=== PATIENT | female | born 1985 | race Asian ===

== ENCOUNTER 2025-08-25 15:16 | Outpatient (REF) | payer OTHER, SELFPAY | END 2025-08-25 15:17 | disposition home or self-care (01) | LOC: HO.CHCLDS 15:16 | PROVIDERS: PCP Internal Medicine; Visit Provider Internal Medicine | DX: Z13.89 Encounter for screening for other disorder (principal) ==

== ENCOUNTER 2025-09-22 13:19 | Outpatient (REF) | payer MEDICAID, SELFPAY ==
--- OUTSIDE RECORDS SUMMARY | 2025-09-18 15:40 | XMS_ITS | Encounter Summary ---
Author Organization [employer] Address [address] [facility] [address] [place] [address] Care Team Providers Care Dope House Operator Helper Name Role Phone Lillie Villegas MD Primary Care Provider [phone] Reason for Visit * Reason Comments latent syphilis Encounter Details Date Type Department Care Team (Late st Contact Info) Description 09/18/2025 3:40 PM EST Office Visit [facility] PEDS [address] [place], [place] [phone] Ana Newman MD [address] [place], [place] [phone] Latent syphilis (Primary Dx) Social History Tobacco Use Types Packs/Day Years Used Date Smoking Tobacco: Never Smokeless Tobacco: Never Housing Stability Answer Date Recorded What is your housing situation today? I have shruthimary ellen chamberlain 08/18/[address] you li ve. Do you have problems with any of the following? None of the above 08/18/2025 Food Insecurity Answer Date Recorded Within the past 12 months, y ou worried that your food would run out before you got money to buy more: Never True 08/18/2025 Within the past 12 months,th e food you bought just didn't last and you didn't have enough money to get more: Never True Transportation Answer Date Recorded In the past 12 months, has l ack of transportation kept you from medical appts, meetings, work or from getting things needed for daily living? No 08/18/2025 Utilities Answer Date Recorded In the past 12 months, has t he electric, gas, oil or water company threatened to shut off services in your home? No 08/18/2025 Internet Access Answer Date Recorded Internet Access Q1 Yes 08/18/2025 Internet Access Q2 Not on file 08/18/2025 Comments Unknown Sex and Gender Information Value Date Recorded Sex Assigned at Female 08/22/2025 1:21 PM EST Legal Sex Female 12:00 PM EDT Gender Identity Female 08/22/2025 1:21 PM EST Sexual Orientation Straight 08/22/2025 1: 21 PM EST documented as of this encounter Last Filed Vital Signs Vital Sign Reading Time Taken Comments Blood Pressure 128/84 09/18/2025 3:38 PM EST Pulse 80 09/18/2025 3:38 PM EST Temperature 36.8 C (98.3 F) 09/18/2025 3:38 PM EST Respiratory Rate 20 09/18/2025 3:38 PM EST Oxygen Saturation 98% 09/18/2025 3:38 PM EST Inhaled Oxygen Concentration - - Weight 83.3 kg (183 lb 9.6 oz) 09/18/2025 3:38 P M EST Height 167.6 cm (5' 6 ) 09/18/2025 3:38 PM EST Body Mass Index 29.63 09/18/2025 3:38 PM EST documented in this encounter Progress Notes * Ana Newman MD - 09/18/2025 3:40 PM EST Subjective Patient ID: Lakesha Gil is a 40 y.o. female who presents for latent syphilis. Lakesha Gil presents for follow-up regarding positive syphilis testing. The patient had RPR testing performed on the which was reactive at a 1:1 titer, with subsequent confirmatory testingalso being reactive. The patient reports no known medication allergies. Medications and Supplements - Amlodipine for blood pressure Allergies - No known drug allergies Review of Systems Constitutional: Negative for appetite change, fatigue and fever. HENT: Negative for congestion, postnasal drip and rhinorrhea. Eyes: Negative for discharge and redness. Respiratory: Negative for apnea, cough, chest tightness and shortness of breath. Cardiovascular: Negative for chest pain. Gastrointestinal: Negative for abdominal pain. Endocrine: Negative for polyphagia. Genitourinary: Negative for difficulty urinating, dysuria and urgency. Musculoskeletal: Negative for arthralgias. Neurological: Negative for dizziness, light-headedness, numbness and headaches. Hematological: Negative for adenopathy. Does not bruise/bleed easily. Objective Blood pressure 128/84, pulse 80, temperature 98.3 ??F (36.8 ??C), temperature source Oral, resp. rate 20, height 5' 6 (1.676 m), weight 183 lb 9.6 oz (83.3 kg), last menstrual period 08/13/2025, SpO2 98%. Physical Exam Constitutional: General: She is not in acute distress. Appearance: She is obese. She is not ill-appearing. HENT: Head: Normocephalic and atraumatic. Nose: No congestion. Pulmonary: Effort: Pulmonary effort is normal. No respiratory distress. Breath sounds: Normal breath sounds. Musculoskeletal: Cervical back: Normal range of motion. Neurological: General: No focal deficit present. Mental Status: She is alert. Psychiatric: Mood and Affect: Mood normal. Assessment/Plan Problem List Items Addressed This Visit None Visit Diagnoses Latent syphilis - Primary Relevant Medications Penicillin G Benzathine suspension prefilled syringe 2.4 patrick-units Other Relevant Orders RPR (Monitor) with Reflex to Titer Lakesha Gil with reactive RPR testing indicating latent syphilis requiring antibiotic treatment. Latent syphilis Assessment: Patient has reactive RPR testing performed on the with a titer of 1:1, confirmed by reactive confirmatory testing. This indicates latent syphilis of unknown duration. She has no known drug allergies. Plan: - Penicillin G benzathine 2.4 million units IM weekly for 3 doses (first dose administered today) - RPR with titer monitoring at 6 months (March 2026), 12 months (September 2026), and 24 months (September 2027) documented in this encounter Plan of Treatment Upcoming Encounters Date Type Department Care Team (Late st Contact Info) Description 09/25/2025 3:30 PM EST Nurse Only [facility] MED & PEDS [address] [place] [address] Scheduled Orders Name Type Priority Associated Diagnoses Orde r Schedule RPR (Monitor) with Reflex to Titer Lab Routine Latent syphilis Expected: 03/19/2026, Expires: 09/18/2026 documented as of this encounter Visit Diagnoses Diagnosis Latent syphilis- Primary Unspecified latent syphilis documented in this encounter Administered Medications Active Administered Medications - up to 3 most recent administrations Medication Order MAR Action Action Date Dose Rate Site Penicillin G Benzathine suspension prefilled syringe 2.4 patrick-units 2.4 patrick-units, Intramuscular, Weekly, First dose on Thu09/18/25 at 1600, For 3 dosesIndications:Late nt syphilis Given 09/18/2025 4:00 PM EST 2.4 patrick-units Left Upper Buttock documented in this encounter Care Teams Dope House Operator Helper Relationship Specialty Start Date End Date Lillie Villegas MD [address] [place] [id number] PCP - General Internal Medicine 08/29/25 documented as of this encounter
[2025-09-22 15:04] LABS: MANUAL DIFF FLAG NO
--- OUTSIDE RECORDS SUMMARY | 2025-09-22 15:08 | XMS_ITS | Encounter Summary ---
Author Organization [employer] Address [address] [facility] [address] [place] [address] Care Team Providers Care Apartment Community Assistant Manager Name Role Phone Lillie Villegas MD Primary Care Provider [phone] Encounter Details Date Type Department Care Team (Latest Contact Info) Description 09/18/2025 Travel Social History Tobacco Use Types Packs/Day Years Used Date Smoking Tobacco: Never Smokeless Tobacco: Never Housing Stability Answer Date Recorded What is your housing situation today? I have shruthi chamberlain 08/18/[address] you [...] PM EST documented as of this encounter Plan of Treatment Upcoming Encounters Date Type Department Care Team ([facility] st Contact Info) Description 09/25/2025 3:30 PM EST Nurse Only [facility] MED & PEDS [address] [place] [address] documented as of this encounter Visit Diagnoses Not on filedocumented in this encounter Care Teams Apartment Community Assistant Manager Relationship Specialty Start Date End Date Lillie Villegas MD [address] [place] [address] PCP - General Internal Medicine 08/29/25 documented as of this encounter
--- OUTSIDE RECORDS SUMMARY | 2025-09-22 15:08 | XMS_ITS | Encounter Summary ---
Author Organization [employer] Address [address] [facility] [address] [place] [address] Care Team Providers Care Software Sales Manager Name Role Phone Lillie Villegas MD Primary Care Provider [phone] Reason for Visit * Reason Onset Date Comments Care Coordination 09/19/2025 Encounter Details Date Type Department Care Team ([facility] st Contact Info) Description 09/19/2025 Telephone [facility] MED & PEDS [address] [place], [place] [phone] Lillie Villegas MD [address] [place], [place] [phone] Care Coordination Social History Tobacco Use Types Packs/Day Years [...] PM EST documented as of this encounter Miscellaneous Notes * Telephone Encounter - Kelly Weinstein RN - 09/19/2025 4:17 PM EST TC to pt spouse on HIPAA and scheduled #2 Bicillin injection for 09/25/25 pt can only come in afternoon. Appointment scheduled for 3:30 PM and advised of importance of therapy compliance and contact office if unable to make to appointment for rescheduling. Pt spouse verbalized understanding and agreement with plan. documented in this encounter Plan of Treatment Upcoming Encounters Date Type Department Care Team (Late st Contact Info) Description 09/25/2025 3:30 PM EST Nurse Only [facility] MED [facility] PEDS [address] [place] [address] documented as of this encounter Visit Diagnoses Not on filedocumented in this encounter Care Teams Software Sales Manager Relationship Specialty Start Date End Date Lillie Villegas MD [address] [place] [address] PCP - General Internal Medicine 08/29/25 documented as of this encounter
--- OUTSIDE RECORDS SUMMARY | 2025-09-22 15:08 | XMS_ITS | Encounter Summary ---
Author Organization [employer] Address [address] [facility] [address] [place] [address] Care Team Providers Care Lead Oxide Mill Tender Name Role Phone Lillie Villegas MD Primary Care Provider [phone] Encounter Details Date Type Department Care Team (Latest Contact Info) Description 08/28/2025 Orders Only [facility] MED [facility] PEDS [address] [place], [place] [phone] Lillie Villegas MD [address] [place], [place] [phone] Hypertriglyceridemia (Primary Dx); Normocytic anemia Social History Tobacco Use Types Packs/Day Years [...] Upcoming Encounters Date Type Department Care Team ([facility] st Contact Info) Description 09/25/2025 3:30 PM EST Nurse Only [facility] PEDS [address] [place] [address] documented as of this encounter Visit Diagnoses Diagnosis Hypertriglyceridemia- Primary Pure hyperglyceridemia Normocytic anemia Unspecified anemia documented in this encounter Care Teams Lead Oxide Mill Tender Relationship Specialty Start Date End Date Lillie Villegas MD [address] [place] [address] PCP - General Internal Medicine 08/29/25 documented as of this encounter
--- OUTSIDE RECORDS SUMMARY | 2025-09-22 15:08 | XMS_ITS | Clinical Summary ---
Author Organization [employer] Address [address] [facility] 7[address] [place] [address] Care Team Providers Care Integrity Assessor Name Role Phone Lillie Villegas MD Primary Care Provider [phone] Allergies No known active allergies Medications Multiple Vitamin (multivitamin) tabletIndicatio ns:Normocytic anemia Take 1 tablet by mouth Once per day. 30 tablet 2 08/28/2025 Active metroNIDAZOLE (Flagyl) 500 MG tabletIndicatio ns:Trichomonias is Take 1 tablet (500 mg) by mouth 2 times daily for 7 days. 14 tablet 09/04/2025 Hospital, Clinic, or Other Facility Administered Medication Ordered Dose Route Frequency Start Date End Date Status Penicillin G Benzathine suspension prefilled syringe 2.4 patrick-unitsIndications:L atent syphilis 2.4 patrick-units IM Weekly 09/18/2025 10/09/2025 Activ e Active Problems Problem Noted Date Diagnosed Date Breast mass in female 08/30/2025 Hypertriglyceridemia 08/28/2025 Normocytic anemia 08/28/2025 Encounters Date Type Department Care Team Description 09/19/2025 Telephone [facility] [address] [place] [address] Lillie Villegas MD Care Coordination 09/18/2025 3:40 PM EST Office Visit [facility] [address] [place] [address] Ana Newman MD 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 Travel 09/15/2025 Travel 09/14/2025 Telephone [facility] [address] [place] [phone] Lisette Lopez RN Error (VOID this visit) 09/14/2025 Travel 09/14/2025 Telephone [facility] [address] [place] [phone] Lisette Lopez RN 09/04/2025 Results Follow-Up [facility] [address] [place] [address] Ana Newman MD STI testing add on (NG, CT, Trich) 08/29/2025 9:20 AM EST Procedure Visit [facility] [address] [place] [address] Ana Newman MD Cervical cancer screening (Primary Dx); Infertility counseling; Abnormal uterine bleeding (AUB); Breast mass in female 08/29/2025 Results Follow-Up [facility] [address] [place] [address] Kelly Weinstein RN CBC auto differential, Comprehensive Metabolic Panel, Lipid Panel, Standard, Additional followed-up results: 2 08/29/2025 Travel 08/28/2025 Orders Only [facility] [address] [place] [address] Lillie Villegas MD Hypertriglyceridemia (Primary Dx); Normocytic anemia 08/25/2025 2:45 PM EST Office Visit [facility] [address] [place] [address] Lillie Villegas MD Family history of breast cancer (Primary Dx); Dietary counseling; Exercise counseling; Overweight; Vaginal bleeding problems; Infertility counseling 08/25/2025 Orders Only [facility] [address] [place] [address] iLllie Villegas MD 08/25/2025 Travel 08/18/2025 Patient Outreach [address] [address] Lakhwinder King MD Pre-visit Planning (SDOH screening negative and Tobacco screening negative) 06/27/[address] [address] Lakhwinder King MD CHW - New Patient Assistance from Last 3 Months Family History Medical History Relation Name Comments Hypertrophy of prostate Father Breast cancer Mother Relation Name Status Comments Father Mother Social History Tobacco Use Types Packs/Day Years Used Date Smoking Tobacco: Never Smokeless Tobacco: Never Tobacco Cessation:Counseling Given: No Housing Stability Answer Date Recorded What is [...] Orientation Straight 08/22/2025 1: 21 PM EST Last Filed Vital Signs Vital Sign Reading [...] Mass Index 29.63 09/18/2025 3:38 PM EST Plan of Treatment Upcoming Encounters Date Type Department Care Team (Late st Contact Info) Description 09/25/2025 3:30 PM EST Nurse Only [facility] [address] [place] [address] Health Maintenance Due Date Last Done Comments Depression Screening 1985 Disability Screening 1987 Alcohol/Substance Use Screening 1999 Family Planning (PISQ) 2002 Hepatitis C Screening 2005 Hepatitis B Vaccines (1 of 3 - 19+ 3-dose series) 2006 HPV Vaccines (2 - 3-dose series) 09/21/2025 08/24/20 SDOH Screening 08/18/2026 08/18/2025 COVID-19 Vaccine (1 - 2024-2 6 season) 2026 Postponed from 06/05 (Patient Refused) HIV Screening 08/25/2026 Postponed from 1987 (Patient Refused) Tobacco Screening 08/29/2026 08/29/2025 Cervical Cancer Screening 08/29/2030 HPV/Cotest 08/29/2030 08/29/2025 Pap Smear 08/29/2030 08/29/2025 DTaP/Tdap/Td Vaccines (2 - T d or Tdap) 08/15/2035 08/15/2025 Zoster Vaccines (1 of 2) 2037 RSV Patients and Pa tients Aged 60 years or older (1 - 1-dose 75+ series) 2062 Influenza Vaccine Completed 08/15/2025 Pneumococcal Vaccine: Pediat rics (0 to 5 Years) and At-Risk Patients (6 to 49) Years Aged Out 08/15/2025 No longer eligi ble based on patient's age to complete this topic HIB Vaccines Aged Out No longer eligi ble based on patient's age to complete this topic Hepatitis A Vaccines Aged Out No long er eligible based on patient's age to complete this topic IPV Vaccines Aged Out No longer eligi ble based on patient's age to complete this topic Meningococcal B Vaccine Aged Out No l onger eligible based on patient's age to complete this topic Meningococcal Vaccine Aged Out No bandar christopher eligible based on patient's age to complete this topic RSV under 20 months Aged Out No longe r eligible based on patient's age to complete this topic Rotavirus Vaccines Aged Out No longer eligible based on patient's age to complete this topic Procedures Procedure Name Priority Date/Time Associated Diagnosis Comments CHLAMYDIA/N. GONORRHOEAE AND T. VAGINALIS RNA, QUAL,TMA Routine 08/29/2025 12:00 AM EST Abnormal uterine bleeding (AUB) PAP SMEAR Routine 08/29/2025 12:00 AM EST Cervical cancer screening HPV DNA, LOW/HIGH RISK Routine 12:00 AM EST Cervical cancer screening CULTURE, URINE, ROUTINE Routine 08/25/2025 7:04 PM EST URINALYSIS, COMPLETE, WITH REFLEX TO CULTURE Routine 08/25/2025 3:38 PM EST Vaginal bleeding problems TSH W/REFLEX TO FT4 Routine 08/25/2025 3 :34 PM EST Vaginal bleeding problems LIPID PANEL, STANDARD Routine 08/25/2025 3:34 PM EST Vaginal bleeding problems COMPREHENSIVE METABOLIC PANEL Routine 08/25/2025 3:34 PM EST Vaginal bleeding problems CBC WITH AUTO DIFFERENTIAL Routine 08/25/2025 3:34 PM EST Vaginal bleeding problems from Last 3 Months Results * (ABNORMAL) STI testing add on (NG, CT, Trich) (08/29/2025 12:00 AM EST) Trichomonas (NAAT) DETECTED(A) NOT DETECTED [facility] Comment:The analytical perfo rmance characteristics of thisassay have been determined by [employer]. Themodifications have not been cleared or approved bythe FDA. This assay has been validated pursuant to theCLIA regulations and is used for clinical purposes.For additional information, please refer tohttp://education.[employer]/faq/Trichomonastma(This link is being provided for information/educational purposes only.)THIS TEST WAS PERFORMED AT:[facility] [place] [phone] MORGNA MD CTNG Ref Lab NOT DETECTED NOT DETECTED [facility] NG Ref Lab NOT DETECTED NOT DETECTED [facility] ThinPrep vial Cervix uteri structure / Unknown 08/29/2025 08/30/2025 7:29 AM EST Narrative [facility] - 09/01/2025 3:58 PM EST Collection Date: [id number] by: BENOIT Byers: Cervix Ana Newman MD LAB CYTOLOGY ORDERABLES Final Result [facility] [address] [place] [phone] * HPV High Risk with Reflex to Subtypes (08/29/2025 12:00 AM EST) HPV High Risk Negative Negative [facility] HPV Genotype 16 Negative Negative [facility] HPV Genotype 18 Negative Negative [facility] Comment:HPV testing performe d at [facility] (CLIA#[id number]), [address] [place] [address].Testing for HPV was performed using the Tabitha HARRIET 6800system. The presence of HPV in the female genital tract isassociated with a number of diseases, including cervicalcarcinoma. The HPV DNA high risk pool tests for HPV 31, 33,35, 39, 45, 51, 52, 56, 58, 59, 66 and 68. The testing forHPV 16 and 18 genotypes has also been performed. A positiveresult indicates detection of nucleic acid sequences fromone or more subtypes, whereas a negative result indicatessuch sequences were not detected. Pap Vial 08/29/2025 08/30/2025 7:2 9 AM EST us Ana Newman MD LAB BLOOD ORDERABLES Final Re sult [facility] [address] [place] [address] [phone] * Pap Smear (08/29/2025 12:00 AM EST) Swab Cervical swab / Unknown 08/29/2025 08/30/2025 6:50 AM EST Narrative [facility] - 09/05/2025 11:25 AM EST ----- ------- Name: Lakesha Gil Age/Sex: 40/F : 1985 Unit#: [id number] Attend Dr: Ana Newman MD Re08/30/25 Status: [facility] REF Location: [facility] Disch: ----- ------- SPEC : [id number] RECD: 08/30/25 STATUS: HOA YANG NUM: [id number] LUZMARIA: 08/29/250000 SUBM DR: Ana Newman MD ENTERED: 08/30/25 SP TYPE: Pap Smr OTHR DR: ORDERED: Pap Smear Interpretation Satisfactory for evaluation. Negative for intraepithelial lesion or malignancy. No endocervical cells seen. HPV High Risk: Negative HPV Genotyping 16: Negative HPV Genotyping 18: Negative Clinical Information LMP: Previous PAP test: Other surgery: Other history: Material Received ThinPrep-Cervical ----- ------- Signed (signature on file) ALLY Connell (ASCP) 09/05/25 1125 ----- ------- END OF REPORT us Ana Newman MD LAB CYTOLOGY ORDERABLES Final Result Performing Organization Address [facility] Co de Phone Number [facility] [address] [place] [address] [phone] * Culture, Urine, Routine (08/25/2025 7:04 PM EST) Urine Urine specimen obtained by clean catch procedure / Unknown 08/25/2025 7:04 PM EST 08/25/2025 7:04 PM EST Comment:[facility] Narrative [facility] - 08/27/2025 10:29 AM EST Urine Culture No growth. Specimen Source: Urine clean catch Lillie Villegas MD LAB MICROBIOLOGY - GENERAL ORDERABLES Final Result Performing Organization Address [facility] Co de Phone Number [facility] [address] [place] [address] [phone] * (ABNORMAL) Urinalysis, Complete, with Reflex to Culture (08/25/2025 3:38 PM EST) Color Urine Yellow [facility] Appearance Urine Clear [facility] PH 5.5 5.0 - 9.0 [facility] Glucose Urine UA Negative Negative mg/dL [facility] Urine Blood Large (3+)(A) Negative [facility] Specific [place] - Urine 1.025 1.005 - 1.025 [facility] Urine Protein Negative Neg-Trace mg/dL [facility] Urine Ketones Negative Negative mg/dL [facility] Nitrite Urine Negative Negative [facility] Leukocyte Esterase Urine Trace(A) Negative [facility] RBC Urine 3-5(A) 0 - 2 /HPF [facility] Urine WBC 11-20(A) 0 - 5 /HPF [facility] Urine Squamous Epithelial Cell 3-5 0 - 2 /HPF [facility] Urine Bacteria Trace None Seen [facility] Hyaline Casts, Urine 0-2 0 - 2 /LPF [facility] Urine 08/25/2025 3:38 PM EST 08/25/2025 6:39 PM EST Narrative [facility] - 08/25/2025 7:04 PM EST [id number], Clean Catch us Lillie Villegas MD LAB URINE ORDERABLES Final Result Performing Organization Address [facility]/ZIP Co de Phone Number [facility] [address] [place] [phone] * TSH with Reflex to Free T4 (08/25/2025 3:34 PM EST) TSH reflex Free T4 0.93 0.32 - 4.0 uIU/mL [facility] Blood Venous blood specimen / Unknown 08/25/2025 3:34 PM EST 08/25/2025 6:29 PM EST Lillie Villegas MD LAB BLOOD ORDERABLES Final Result [facility] [address] [place] [phone] * (ABNORMAL) CBC auto differential (08/25/2025 3:34 PM EST) White Blood Count 7.5 4.8 - 10.8 X10*3/uL [facility] Red Blood Count 4.30 4.20 - 5.50 X10*6/uL [facility] Hemoglobin 11.9(L) 12.0 - 16.0 g/dl [facility] Hematocrit 37.8 37.0 - 47.0 % [facility] Mean Corpuscular Volume 87.9 80.0 - 98.0 fL [facility] Mean Corpuscular Hemoglobin 27.7 27.0 - 33.0 pg [facility] Mean Corpuscular HGB Conc 31.5 31.0 - 35.0 g/dl [facility] Red Cell Distribution Width 13.7 11.0 - 16.0 % [facility] Platelet Count 306 160 - 400 X10*3/uL [facility] Mean Platelet Volume 10.8 9.4 - 12.3 fL [facility] Neutrophils Percent Auto 44.2(L) 45 - 73 % [facility] Imm Gran Pct Auto 0.4 0.0 - 0.4 % [facility] Lymphocytes Percent Auto 45.9(H) 20 - 40 % [facility] Monocytes Percent Auto 8.2 2 - 11 % [facility] Eosinophils Percent Auto 0.9 0 - 4 % [facility] Basophils Percent Auto 0.4 0 - 2 % [facility] NRBC Pct Auto 0.0 0.0 - 0.2 /100WBC [facility] Neutrophils Absolute Auto 3.3 2.0 - 8.3 x10*3/uL [facility] Imm Gran Abs Auto 0.03 0.00 - 0.03 X10*3/uL [facility] Lymphocytes Absolute Auto 3.5 1.2 - 4.9 X10*3/uL [facility] Monocytes Absolute Auto 0.6 0.1 - 1.2 X10*3/uL [facility] Eosinophils Absolute Auto 0.1 0.0 - 0.4 X10*3/uL [facility] Basophils Absolute Auto 0.0 0.0 - 0.2 X10*3/uL [facility] NRBC Abs Auto 0.000 0.0 - 0.012 X10*3/uL [facility] Blood Venous blood specimen / Unknown 08/25/2025 3:34 PM EST 08/25/2025 6:29 PM EST us Lillie Villegas MD LAB BLOOD ORDERABLES Final Result [facility] [address] [place] [phone] * (ABNORMAL) Lipid Panel, Standard (08/25/2025 3:34 PM EST) Triglycerides 277(H) <150 mg/dL [facility] Comment:Slight Lipemia.Joyce able Triglyceride: less than 150 mg/dLBorderline High Triglyceride 150-199 mg/dLHigh Triglyceride: 200-499 mg/dLVery High Triglyceride: greater than or equal to 5OO mg/dL Cholesterol 168 <200 mg/dL [facility] Comment:Desirable Cholestero l: less than 200 mg/dLBorderline High Cholesterol: 200-239 mg/dLHigh Cholesterol: greater than 239 mg/dL LDL Cholesterol Calculated 80 <100 mg/dL [facility] Comment:Desirable LDL: less than 100 mg/dLNear Optimal/Above Optimal LDL: 110- 129 mg/dLBorderline High LDL: 130-159 mg/dLHigh LDL: 160-189 mg/dLVery High LDL: greater than or equal to 190 mg/dL HDL Cholesterol 33(L) >40 mg/dL [facility] Comment:Desirable HDL: great er than 40 mg/dL Note: This HDL assay may give artificially low results in patients with liver disease. Blood Venous blood specimen / Unknown 08/25/2025 3:34 PM EST 08/25/2025 6:29 PM EST us Lillie Villegas MD LAB BLOOD ORDERABLES Final Result [facility] [address] [place] [phone] * (ABNORMAL) Comprehensive Metabolic Panel (08/25/2025 3:34 PM EST) Sodium 138 135 - 145 mmol/L [facility] Potassium 3.8 3.3 - 5.1 mmol/L [facility] Chloride 108 96 - 108 mmol/L [facility] Carbon Dioxide 23 22 - 29 mmol/L [facility] Anion Gap 11(L) 12 - 20 [facility] Urea Nitrogen (BUN) 10 9 - 16 mg/dL [facility] Creatinine, Serum 0.55 0.5 - 1.4 mg/dL [facility] Estimated Glomerular Filt Rate >60 [facility] Comment:Chronic Kidney Disea se: Estimated GFR < 60 mL/min/1.00z8[place] Kidney Disease: Estimated GFR < 15 mL/min/1.73m2 Glucose 83 60 - 115 mg/dL [facility] Calcium 9.4 8.4 - 10.2 mg/dL [facility] Bilirubin, Total 0.5 0.0 - 1.0 mg/dL [facility] Aspartate Amino Transferase 19 5 - 31 U/L [facility] Alanine Aminotransferase 22 0 - 31 U/L [facility] Total Protein 8.4(H) 6.5 - 8.0 g/dL [facility] Albumin Level 4.6 3.5 - 5.0 g/dL [facility] Alkaline Phosphatase 81 39 - 117 U/L [facility] Blood Venous blood specimen / Unknown 08/25/2025 3:34 PM EST 08/25/2025 6:29 PM EST us Lillie Villegas MD LAB BLOOD ORDERABLES Final Result [facility] [address] [place] [phone] from Last 3 Months Insurance [facility] C3 Care Teams Integrity Assessor Relationship Specialty Start Date End Date Lillie Villegas MD [address] [place] [phone] PCP - General Internal Medicine 08/29/25
--- OUTSIDE RECORDS SUMMARY | 2025-09-22 15:08 | XMS_ITS | Encounter Summary ---
Author Organization [employer] Address [address] [facility] [address] [place] [address] Care Team Providers Care Sweet Pickle Maker Name Role Phone Lillie Villegas MD Primary Care Provider [phone] Encounter Details Date Type Department Care Team (Latest Contact Info) Description 08/29/2025 Results Follow-Up [facility] [address] [place] [address] Kelly Weinstein RN CBC auto differential, Comprehensive Metabolic Panel, Lipid Panel, Standard, Additional followed-up results: 2 Social History Tobacco Use Types Packs/Day Years Used Date Smoking Tobacco: Never Smokeless Tobacco: Never Housing Stability Answer Date Recorded What is your housing situation today? I have shruthi bulmaro 08/18/[address] you li [...] Description 09/25/2025 3:30 PM EST Nurse Only [facility] [address] [place] [address] documented as of this encounter Visit Diagnoses Not on filedocumented in this encounter Care Teams Sweet Pickle Maker Relationship Specialty Start Date End Date Lillie Villegas MD [address] [place] [address] PCP - General Internal Medicine 08/29/25 documented as of this encounter
[2025-09-22 15:16] LABS: Hematocrit 38.1 % (37.0-47.0); Hemoglobin 12.1 g/dl (12.0-16.0); Imm Gran Abs Auto 0.01 X10*3/uL (0.00-0.03); Imm Gran Pct Auto 0.2 % (0.0-0.4); Lymphocytes Absolute Auto 3.1 X10*3/uL (1.2-4.9); Mean Corpuscular HGB Conc 31.8 g/dl (31.0-35.0); Mean Corpuscular Hemoglobin 27.6 pg (27.0-33.0); Mean Corpuscular Volume 87.0 fL (80.0-98.0); NRBC Abs Auto 0.000 X10*3/uL (0.0-0.012); NRBC Pct Auto 0.0 /100WBC (0.0-0.2); Platelet Count 292 X10*3/uL (160-400); Red Blood Count 4.38 X10*6/uL (4.20-5.50); White Blood Count 6.1 X10*3/uL (4.8-10.8)
[2025-09-24 18:08] LABS: Follicle Stimulating Hormone 7.1 mIU/mL
[2025-09-25 15:24] LABS: Anti-Mullerian Hormone-Female 12.86 ng/mL (0.18-5.68)
== END 2025-09-22 13:20 | disposition home or self-care (01) ==
LOC: HO.CHCLDS 13:19
PROVIDERS: PCP Family Medicine; Visit Provider Family Medicine
DX: Z31.69 Encounter for other general counseling and advice on procreation (principal); N93.9 Abnormal uterine and vaginal bleeding, unspecified; A53.0 Latent syphilis, unspecified as early or late
CPT/HCPCS: 36415; 82166; 82670; 82681; 83001; 84402; 84403; 84443; 85025; 86592